=== PATIENT | female | born 1955 | race Caucasian/White ===

== ENCOUNTER 2020-10-08 00:32 | Observation (INO) | payer MEDICARE, OTHER ==
[~2020-10-08] VITALS: Ht 157.5 cm; Wt 52.2 kg
[2020-10-08 02:03] LABS: HEMOGLOBIN 14.2 gm/dl (12.3-15.3); RED BLOOD COUNT 4.79 M/UL (4.00-5.10); WHITE BLOOD COUNT 9.6 K/UL (4.5-11.0)
[2020-10-08 02:28] LABS: BUN/CREATININE RATIO 45 (0-10)
[2020-10-08 08:12] LABS: BORDETELLA PARAPERTUSSIS Not Detected (Not Detectd); BORDETELLA PERTUSSIS Not Detected (Not Detectd); CHLAMYDIA PNEUMONIAE Not Detected (Not Detectd); CORONAVIRUS HKU1 Not Detected (Not Detectd); CORONAVIRUS NL63 Not Detected (Not Detectd); CORONAVIRUS OC43 Not Detected (Not Detectd); CORONOAVIRUS 229E Not Detected (Not Detectd); HUMAN METAPNEUMOVIRUS Not Detected (Not Detectd); INFLUENZA A Not Detected (Not Detectd); INFLUENZA B Not Detected (Not Detectd); MYCOPLASMA PNEUMONIAE Not Detected (Not Detectd); PARAINFLUENZA VIRUS 1 Not Detected (Not Detectd); PARAINFLUENZA VIRUS 2 Not Detected (Not Detectd); PARAINFLUENZA VIRUS 3 Not Detected (Not Detectd); PARAINFLUENZA VIRUS 4 Not Detected (Not Detectd); RESPIRATORY SYNCYTIAL VIRUS Not Detected (Not Detectd)
[2020-10-08 10:17] LABS: HUMAN RHINOVIRUS/ENTEROVIRUS DETECTED (Not Detectd); SARS-CoV-2 NOT DETECTED (Not Detectd)
[2020-10-08] MEDS ORDERED: ZITHROMAX500 MG PO (21:10)
[2020-10-08] MEDS ORDERED: PREDNISONE20 MG PO (21:11)
[2020-10-08] MEDS ORDERED: TESSALON PERLE100 MG PO (21:11)
[2020-10-08] MEDS ORDERED: ADVAIR 250-501 EACH INH (21:12)
[2020-10-08] MEDS ORDERED: COMBIVENT RESPIM4 GM INH (21:13)
[2020-10-08] MEDS ORDERED: CARDIZEM 90MG T90 MG PO (21:14)
[2020-10-08] MEDS ORDERED: NEXIUM40 MG PO (21:15)
[2020-10-08] MEDS ORDERED: GLUCOPHAGE500 MG PO (21:15)
[2020-10-08] MEDS ORDERED: VENTOLIN/PROVE0.5 ML INH ×2 (21:16)
[2020-10-08] MEDS ORDERED: OXYGEN (21:17)
[2020-10-08] MEDS ORDERED: POTASSIUM CHLO10 ME1 PO (21:18)
[2020-10-08] MEDS ORDERED: KLONOPIN0.5 MG PO (21:19)
[2020-10-08] MEDS ORDERED: PROAIR HFA8.5 GM INH (21:19)
[2020-10-08] MEDS ORDERED: LIDOCAINE PAIN1 EACH TP (21:20)
[2020-10-08] MEDS ORDERED: LYRICA150 MG PO (21:21)
[2020-10-08] MEDS ORDERED: SYNTHROID100 MCG PO (21:22)
[2020-10-08] MEDS ORDERED: OXYCODONE-ACET1 EACH PO (21:22)
[2020-10-09 03:36] LABS: BUN/CREATININE RATIO 54 (0-10)
--- NOTE | 2020-10-09 11:52 | NUR ---
[id number] PATIENT REFUSED DEVAUGHN WANTS TO SIGN OUT AMA WILL INFORM
[2020-10-09] MEDS ORDERED: SENNA-TIME S T1 EACH PO (12:13)
== END 2020-10-09 12:48 | disposition home or self-care (01) ==
LOC: ER1 00:32 → MED SURG 4 06:07 → CDU 06:07 → MED SURG 4 06:07
PROVIDERS: Family Medicine; Internal Medicine Infectious Disease; ADMIT Internal Medicine
DX: J44.1 Chronic obstructive pulmonary disease with (acute) exacerbation (principal); J96.22 Acute and chronic respiratory failure with hypercapnia; J96.21 Acute and chronic respiratory failure with hypoxia; R91.8 Other nonspecific abnormal finding of lung field; J82.83 Eosinophilic asthma; I10 Essential (primary) hypertension; E11.9 Type 2 diabetes mellitus without complications; Z20.828 Contact with and (suspected) exposure to other viral communicable diseases; Z87.891 Personal history of nicotine dependence; Z79.4 Long term (current) use of insulin; Z79.52 Long term (current) use of systemic steroids; Z79.891 Long term (current) use of opiate analgesic; Z79.899 Other long term (current) drug therapy; Z88.1 Allergy status to other antibiotic agents; Z88.5 Allergy status to narcotic agent
CPT/HCPCS: 36415; 36600; 71045; 80048; 80053; 82550; 82553; 82803; 82962; 83605; 84484; 85025; 87040; 87633; 93005; 94640; 94664; 94760; 96365; 96366; 96372; 96375; 96376; 99285; G0378; J1650; J2920; J2930; U0002

== ENCOUNTER → 2021-02-13 | Outpatient (CLI) | payer MEDICARE, OTHER ==
[~2021-02-13] MED LIST: ADVAIR 250-501 EACH INH; CARDIZEM 90MG T90 MG PO; COMBIVENT RESPIM4 GM INH; GLUCOPHAGE500 MG PO; KLONOPIN0.5 MG PO; LIDOCAINE PAIN1 EACH TP; LYRICA150 MG PO; NEXIUM40 MG PO; OXYCODONE-ACET1 EACH PO; OXYGEN; POTASSIUM CHLO10 ME1 PO; PREDNISONE20 MG PO; PROAIR HFA8.5 GM INH; SENNA-TIME S T1 EACH PO; SYNTHROID100 MCG PO; TESSALON PERLE100 MG PO; VENTOLIN/PROVE0.5 ML INH; ZITHROMAX500 MG PO
== END ==
LOC: KOH-I 10-11 13:00
DX: R06.02 Shortness of breath (principal); R91.8 Other nonspecific abnormal finding of lung field
CPT/HCPCS: 71250

== ENCOUNTER → 2021-06-01 | Outpatient (CLI) | payer MEDICARE, OTHER | LOC: KOH-I 05-09 14:30 | DX: R91.1 Solitary pulmonary nodule (principal) | CPT/HCPCS: 71250 ==

== ENCOUNTER 2021-12-22 08:36 | Emergency (ER) | payer MEDICARE, OTHER, MEDICAID ==
[2021-12-22 09:16] LABS: HEMOGLOBIN 13.7 gm/dl (12.3-15.3); RED BLOOD COUNT 4.7 M/UL (4.00-5.10); WHITE BLOOD COUNT 8.9 K/UL (4.5-11.0)
[2021-12-22 09:49] LABS: BUN/CREATININE RATIO 31 (0-10)
== END 2021-12-22 12:32 | disposition home or self-care (01) ==
LOC: ER1 08:36
PROVIDERS: Preventive Medicine Occupational Medicine
DX: C34.90 Malignant neoplasm of unspecified part of unspecified bronchus or lung (principal); M54.2 Cervicalgia; G89.29 Other chronic pain; Z20.822 Contact with and (suspected) exposure to COVID-19
CPT/HCPCS: 0240U; 36600; 70450; 71045; 72125; 72128; 80053; 81001; 82550; 82553; 82803; 83605; 83690; 83880; 84484; 85025; 85652; 86140; 87086; 93005; 94664; 96374; 96375; 96376; 99284; J1100; J1170; J2405

== ENCOUNTER → 2022-04-25 | Outpatient (CLI) | payer MEDICARE, OTHER | LOC: CT 08:12 | DX: C34.31 Malignant neoplasm of lower lobe, right bronchus or lung (principal); H21.562 Pupillary abnormality, left eye | CPT/HCPCS: 70470; Q9967 ==